=== PATIENT | female | born 1955 | race Caucasian/White ===

== ENCOUNTER 2023-11-08 13:18 | Outpatient (CLI) | payer OTHER, MEDICAID, SELFPAY ==
--- NOTE | ~2023-11-08 | MM_ITS ---
EXAMINATION: MM screening vic BI w bernice HISTORY: Screening mammogram TECHNIQUE: Craniocaudal and mediolateral oblique 3-D tomosynthesis images were obtained and synthetic 2-D images were generated. CAD analysis was submitted and interpreted. COMPARISON: No prior mammogram is available for comparison at this institution. BREAST PARENCHYMAL COMPOSITION: There are scattered areas of fibroglandular density. FINDINGS: RIGHT BREAST: No suspicious mass, calcification, or architectural distortion are identified to sugges t malignancy. LEFT BREAST: An asymmetry is present in the middle third of the upper left breast on the mediolateral oblique view. IMPRESSION: 1. Left breast asymmetry which may represent the patient's baseline however no comparison is currentl y available. 2. Comparison with prior mammograms is necessary. BI-RADS Category 0: Incomplete: Needs comparison with prior mammograms. Reviewed, dictated and finalized at location A. FING OPERATIONS MANAGER IMPRESSION: 1. Left breast asymmetry which may represent the patient's baseline however no comparison is currently available. 2. Comparison with prior mammograms is necessary. BI-RADS Category 0: Incomplete: Needs comparison with prior mammograms.
== END 2023-11-08 13:19 | disposition home or self-care (01) ==
LOC: ANHIMG 13:22
PROVIDERS: PCP Internal Medicine; Visit Provider Nurse Practitioner
DX: Z12.31 Encounter for screening mammogram for malignant neoplasm of breast (principal); R92.8 Other abnormal and inconclusive findings on diagnostic imaging of breast
CPT/HCPCS: 77063; 77067

== ENCOUNTER 2024-02-25 11:07 | Outpatient (CLI) | payer OTHER, SELFPAY ==
--- NOTE | ~2024-02-25 | XR_ITS ---
Right Hand Technique: PA, oblique, and lateral views were obtained. Clinical History: Pain Findings: No acute fracture or dislocation is seen. Osseous alignment is anatomic. Joint spaces are p reserved. Soft tissues are unremarkable. Impression: Unremarkable right hand. Reviewed, dictated and finalized at location M. Impression: Unremarkable right hand.
== END 2024-02-25 11:08 ==
LOC: GOSHIMG 11:09
PROVIDERS: PCP Nurse Practitioner; Visit Provider Nurse Practitioner
DX: M79.641 Pain in right hand (principal)
CPT/HCPCS: 73130

== ENCOUNTER 2024-05-29 12:30 | Outpatient (RCR) | payer OTHER, SELFPAY ==
--- NOTE | 2024-04-13 10:53 | OTOPEVAL1 ---
Assessment and note entered by Nash Wells, RADHIKA/Ramirez, CHT Evaluation Information 04/13/24 Diagnosis M79.641 Pain in right hand Subjective Information Patient is right handed. She reports constant right thumb pain, typically 2-3/10. She reports her thumb pain can get up to 9/10 when using her rollator. She sometimes wakes up at night from the pain if her hand is pushed into an odd position. Pain with writing and pinching. Reported Pain Level Pain Score 3/10 right thumb = Assessment OT Clinical Summary Patient referred to OT with right thumb pain. Appears to be arthritic in nature, but exacerbated by use of her rollator walker. Patient responded very well to heat treatment, manual therapy, and ROM exercises. Pain pre-treatment 3/10. Pain post tx 0/10. Continued follow up indicated for continued use of modalities, manual therapy, therapeutic exercise, splinting (PRN), and HEP progression to facilitate improved strength and reduced pain in the right thumb. Plan of Care Interventions Therapeutic Exercise,Manual Therapy,Therapeutic Activities,Hot Pack/Cold Pack,Check Out for Orthotic/Pr,Ultrasound,Paraffin OT Services Indicated Yes Treatment Frequency and 1x/week for 4 visits Duration These treatments will address the objective and functional deficits as defined above. The patient will be advanced safely and appropriately in order for the patient to progress towards his/her prior level of function. Additional exercises will be introduced and as well as a comprehensive home exercise program upon discharge, if needed, ?to ensure carryover of functional gains achieved in the clinic. This treatment plan has been reviewed and agreement upon by the patient.
--- NOTE | 2024-04-13 10:53 | OPREHPOC ---
Outpatient Therapy Plan of Care This is a Multidisciplinary Plan of Care that may contain components documented by all disciplines (PT, OT, and ST.) OT Problem 1 OT Problem #1 Knowledge Deficit OT Goal 1 Goal 1. Patient to be independent with instructed materials. Target Visit 4 OT Problem 2 OT Problem #2 Pain OT Goal 1 Goal 1. Patient to report reduced pain in the right thumb to 0/10 at rest. Target Visit 4 OT Problem 3 OT Problem #3 Impaired Strength OT Goal 1 Goal 1. Patient to be able to complete supervisor steffen house/pinch strengthening with at least yellow theraputty x5 minutes without pain. Target Visit 4
--- NOTE | 2024-04-13 12:44 | STOPEVAL1 ---
Assessment and note entered by Chasity Zayas MEDICAL OFFICE WORKER Evaluation Information Assessment Status Evaluation Assessment Status Evaluation Other ICD-10 Condition Codes ( R 47.[address]) Onset Reports several years Subjective Information Patient reports that she is aware that her speech is getting hard to understand. She reports her speech becomes more slurred when she is fatigued or not feeling well. Patient stated that her cannot always understand her and the miscommunication has caused stress in their relationship. Patient also reports her voice has become more gravelly and lower in pitch in the past few months. Patient also stated that she feels her tongue is not flexible anymore and that it feels thick, contributing to difficulty saying words, especially longer words. Patient states that lengthy conversations fatigue her and she tends to avoid lengthy phone conversations. She denies difficulty with her swallowing at this time. Reported Pain Level Pain Score 0: Self Report Pain Score 3: Self Report Assessment ST Clinical Summary SPEECH EVALUATION The patient was seen for a Speech Evaluation due to physician request for reduced speech intelligibility and poor respiration/phonation coordination. Patient presented with mild dysarthria characterized as reduced labial/lingual rate and strength of movement, speech sounds that were intelligible but produced with slow rate, reduced breath control that contributed to need for frequent breaks and inhalation and inconsistent but present omission of /t/ in /st/ blends, noted throughout structured tasks and conversation; for example, in a word that contained two sets of /st/ sounds, she produced the /st/ in the initial position of the word correctly and dropped the /t/ in the second /st/ blend. Patient will be seen 1x weekly for 3 visits in order to instruct the patient in the use of both respiration exercises, respiration/phonation exercises, oral motor resistance exercises, speech sound production tasks, and swallowing exercises/
--- NOTE | 2024-04-13 12:52 | OPREHPOC ---
Outpatient Therapy Plan of Care This is a Multidisciplinary Plan of Care that may contain components documented by all disciplines (PT, OT, and ST.) OT Problem 1 OT Problem #1 Knowledge Deficit OT Goal 1 Goal 1. Patient to be independent with instructed materials. Target Visit 4 OT Problem 2 OT Problem #2 Pain OT Goal 1 Goal 1. Patient to report reduced pain in the right thumb to 0/10 at rest. Target Visit 4 OT Problem 3 OT Problem #3 Impaired Strength OT Goal 1 Goal 1. Patient to be able to complete certified alcohol counselor/pinch strengthening with at least yellow theraputty x5 minutes without pain. Target Visit [address] Problem #[address] Goal 1 Goal Patient will voice and demonstrate anatomy and physiology related to communication impairment, swallowing impairment, treatment plan, home exercise program, compensatory programs, and risks and benefits related to direct Speech Therapy tasks. Target Visit [address] Problem #[address] Goal 1 Goal 1, Patient will complete lingual/labial/buccal exercises 10 repetitions with good strength in order to produce precise speech sounds. 2. Patient will demonstrate increased coordination and diadochokinetic rates for both labial and lingual sounds so that patient can hedis registered nurse rn his own productions as precise? 90% of the time. 3. Patient will produce over-articulated mono-/bi- /poly-syllabic words with 90% accuracy. 4. Patient will produce over-articulated words at the phrase/sentence level with 90% accuracy. 5. Patient will develop intelligible, connected speech through the use of compensatory techniques as needed. Target Visit [address] Goal 2 Goal 7. Patient will demonstrate understanding of easy onset techniques and raising pitch to reduce tension in the vocal cords in order to reduce vocal hoarseness and improve vocal quality. Target Visit 3
--- NOTE | 2024-04-18 10:49 | PCSTNOTE ---
Therapist attempted to call patient this morning around 10:15 to discuss scheduling and there was no answer. Left message and awaiting call back.
--- NOTE | 2024-04-21 15:19 | OPREHPOC ---
Outpatient Therapy Plan of Care This is a Multidisciplinary Plan of Care that may contain components documented by all disciplines (PT, OT, and ST.) OT Problem 1 OT Problem #1 Knowledge Deficit OT Goal 1 Goal 1. Patient to be independent with instructed materials. Target Visit 4 OT Problem 2 OT Problem #2 Pain OT Goal 1 Goal 1. Patient to report reduced pain in the right thumb to 0/10 at rest. Target Visit 4 OT Problem 3 OT Problem #3 Impaired Strength OT Goal 1 Goal 1. Patient to be able to complete manager digital ad operations/pinch strengthening with at least yellow theraputty x5 minutes without pain. Target Visit [address] Problem #[address] Goal 1 Goal Patient will voice and demonstrate anatomy and physiology related to communication impairment, swallowing impairment, treatment plan, home exercise program, compensatory programs, and risks and benefits related to direct Speech Therapy tasks. Target Visit [address] Problem #[address] Goal 1 Goal 1, Patient will complete lingual/labial/buccal exercises 10 repetitions with good strength in order to produce precise speech sounds. 2. Patient will demonstrate increased coordination and diadochokinetic rates for both labial and lingual sounds so that patient can finance assistant his own productions as precise? 90% of the time. 3. Patient will produce over-articulated mono-/bi- /poly-syllabic words with 90% accuracy. 4. Patient will produce over-articulated words at the phrase/sentence level with 90% accuracy. 5. Patient will develop intelligible, connected speech through the use of compensatory techniques as needed. Target Visit [address] ST Goal 2 Goal 7. Patient will demonstrate understanding of easy onset techniques and raising pitch to reduce tension in the vocal cords in order to reduce vocal hoarseness and improve vocal quality. Target Visit 3
--- NOTE | 2024-05-29 09:44 | OTOPPROG ---
Assessment and note entered by Nash Wells, RADHIKA/Ramirez, CHT OT Progress Update 05/29/24 Diagnosis M79.641 Pain in right hand Subjective Information Patient is right handed. She reports no longer experiencing constant pain. She reports reduced intensity and frequency of pain. We added some padding to her rollator handle and this has helped . She no longer wakes up in the middle of the night because of hand pain. She does continue to experience high amounts of pain, at worst an 8/ 10, but this is less and less frequent. Assessment OT Clinical Summary Patient referred to OT with right thumb pain. She has been participating in OT x5 sessions with good results, responding well to use of modalities, manual therapy, and therapeutic exercise. Today she is reporting less pain. National Expansion Recruiter and pinch strengths have improved. She continues to experience limiting pain, as bad as 8/10, on occasion. Discussed fabricating a thermoplastic thumb [employer] support vs. ordering a prefabricated support from [employer]. She prefers to order from [employer] - gave recommendations on which one would be best suited for her. Continued follow up indicated for continued use of modalities, manual therapy, therapeutic exercise, and HEP progression to facilitate improved strength and reduced pain in the right thumb. Plan of Care Interventions Therapeutic Exercise,Manual Therapy,Therapeutic Activities,Hot Pack/Cold Pack,Check Out for Orthotic/Pr,Ultrasound,Paraffin OT Services Indicated Yes Treatment Frequency and 1x/week for 4 visits Duration These treatments will address the objective and functional deficits as defined above. The patient will be advanced safely and appropriately in order for the patient to progress towards his/her prior level of function. Additional exercises will be introduced and as well as a comprehensive home exercise program upon discharge, if needed, ?to ensure carryover of functional gains achieved in the clinic. This treatment plan has been reviewed and agreement upon by the patient.
--- NOTE | 2024-05-29 09:45 | OPREHPOC ---
Outpatient Therapy Plan of Care This is a Multidisciplinary Plan of Care that may contain components documented by all disciplines (PT, OT, and ST.) OT Problem 1 OT Problem #1 Knowledge Deficit OT Goal 1 Goal / Goal Update 1. Patient to be independent with instructed materials. ---OT POC UPDATE 05/29/24--- 1. Met, continue as HEP is progressed Target Visit 9 OT Problem 2 OT Problem #2 Pain OT Goal 1 Goal / Goal Update 1. Patient to report reduced pain in the right thumb to 0/10 at rest. ---OT POC UPDATE 05/29/24--- 1. Met, Upgrade goal - Patient to report pain at worst with ADLs to 4/10 or less. Target Visit 9 OT Problem 3 OT Problem #3 Impaired Strength OT Goal 1 Goal / Goal Update 1. Patient to be able to complete surfboard designer/pinch strengthening with at least yellow theraputty x5 minutes without pain. ---OT POC UPDATE 05/29/24--- 1. Patient is progressing, continue goal Target Visit 9
--- NOTE | 2024-05-29 14:36 | STOPPROG ---
Assessment and note entered by Chasity Zayas VENIPUNCTURIST Evaluation Information Assessment Status Progress Assessment Status Progress Assessment ST Clinical Summary PROGRESS NOTE This patient has been seen for a Speech Evaluation and then three additional treatment sessions to address dysarthria and voicing complaints. Patient 's speech is generally intelligible however she exhibits slow rate with speech sound imprecisions including sound omissions (i.e. omission of /s/ in is when embedded within a sentence) or sound substitutions (non-nasal sounds for nasal sounds such as Cadada for Alejandro ). Patient has been provided with breating exercises, labial/lingual exercises and multi-syllabic labial/lingual words to address in order to increase the strength of the articulators and respiration/phonation coordination. The patient reports that Speech Therapy has been helpful; she reports she has now realized that her breathing issues have been contributing to her speech/voice issues, that impaired breathing has caused her not have the breath/energy to enunciate and/or use longer words. She stated that the breathing exercises given to her in ST sessions have been helpful, and that she now self-monitors her speech for more accurate speech sound precision. She pays more attention to others who give nonverbal feedback (i.e. leaning in to hear her better). Patient reports that her also monitors her speech and corrects her when she becomes imprecise. Due to finding improvement in her speech and voicing, patient requests additional Speech Therapy sessions to further address all of the goals listed for improved speech sound precision, vocal quality, and breath control. Patient will be seen for an additional four sessions to further focus on utilizing all areas of speech /voice to improve her conversational intelligibility for both speech sound precision, coordination, and for clear voicing. Patient is aware of recommendations and in agreement. Thank you for this referral.
--- NOTE | 2024-06-08 14:17 | STOPDC ---
Assessment and note entered by Chasity Zayas HVAC SALES REPRESENTATIVE Evaluation Information Assessment Status Discharge - Pt Not Presen Assessment ST Clinical Summary DISCHARGE SUMMARY This patient was seen for an initial Speech Therapy evaluation and three additional treatment sessions focusing on improve speech intelligibility. Patient was presented with home exercises to do each session and reported she does complete them at home. She was presented with a link to purchase an [id number] device to assist with improve respirations/breathing and she did purchase it and stated that she feels that using that device has improved her breathing which has helped her speech. She addressed a variety of exercises for speech sound precision and rate and voiced improvement prior to discharge. She decided to discharge after receiving a bill for charges for all of her therapies and did not want to continue and therefore plan of care could not be fully completed. Plan of Care ST Services Indicated No
--- NOTE | 2024-06-09 08:18 | OTOPDC ---
Assessment and note entered by Nash Wells, OTR/L, CHT OT Discharge Notification 06/09/24 OT Clinical Summary Patient called to cancel scheduled appointments due to receiving a bill. Please refer to note dated 05/29/24 for most recent progress summary. D/C OT at this time per patient request.
== END 2024-06-09 11:54 | disposition home or self-care (01) ==
LOC: ANHST 12:30
PROVIDERS: PCP Internal Medicine; Visit Provider Nurse Practitioner
DX: G11.8 Other hereditary ataxias (principal); R47.1 Dysarthria and anarthria
CPT/HCPCS: 92507; 92522; 97018; 97110; 97140; 97165

== ENCOUNTER 2024-07-17 15:09 | Outpatient (CLI) | payer OTHER, SELFPAY ==
--- NOTE | ~2024-07-17 | XR_ITS ---
EXAMINATION: XR knee RT 3V DATE: 07/17/2024 15:30 INDICATION: Pain in unspecified knee. TECHNIQUE: 3 views of right knee were obtained. COMPARISON: None. FINDINGS: Alignment is normal. No fracture. There is mild tricompartmental osteoarthritis. No knee benson int effusion. IMPRESSION: 1. Mild right knee osteoarthritis. Reviewed, dictated and finalized at location A.
== END 2024-07-17 15:10 | disposition home or self-care (01) ==
LOC: GOSHIMG 15:10
PROVIDERS: PCP Nurse Practitioner; Visit Provider Nurse Practitioner
DX: M17.11 Unilateral primary osteoarthritis, right knee (principal)
CPT/HCPCS: 73562

== ENCOUNTER 2024-08-05 11:23 | Outpatient (CLI) | payer OTHER, SELFPAY ==
--- NOTE | ~2024-08-05 | MR_ITS ---
MRI of the right knee Clinical history: Pain Technique: Coronal proton density and proton density-weighted images, sagittal proton-density and T2 fat-sat images, and axial proton-density fat-saturated images were acquired. Findings: Anterior and posterior cruciate ligaments are intact. Medial collateral ligament is intact with minimal stranding soft tissue edema. Lateral collateral ligament complex is intact. Popliteus te ndon is intact. There is complex tearing of the body segment of the medial meniscus, extending into the posterior hor n. Lateral meniscus intact, without evidence of tear. There is focal moderate chondral lesion at the medial patellar facet. There is high-grade chondromala sudhir at the central aspect of the medial femoral condyle and towards the medial joint line. Suspected very subtle/early subchondral insufficiency fracture at the medial tibial plateau with amorphous surr ounding marrow edema. There is an enchondroma the proximal tibia. Extensor mechanism is intact. Small joint effusion present with [id number] Bailey's cyst. Impression: Early/mild subchondral insufficiency fracture of the medial tibial plateau region with amorphous surr ounding marrow edema. Underlying complex tearing of the posterior horn and body of the medial meniscus. 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 Small joint effusion with small to moderate Bailey's cyst. Reviewed, dictated and finalized at location . HER BELT SHAPER Impression: Early/mild subchondral insufficiency fracture of the medial tibial plateau emily on with amorphous surrounding marrow edema. Underlying complex tearing of the posterior horn and body of the medial meniscu s. 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 Small joint effusion with small to moderate Bailey's cyst.
== END 2024-08-05 11:24 | disposition home or self-care (01) ==
LOC: MICIMG 11:24
PROVIDERS: PCP Nurse Practitioner; Visit Provider Nurse Practitioner
DX: S82.141A Displaced bicondylar fracture of right tibia, initial encounter for closed fracture (principal); X50.1XXA Overexertion from prolonged static or awkward postures, initial encounter; Y93.9 Activity, unspecified; Y92.9 Unspecified place or not applicable
CPT/HCPCS: 73721